=== PATIENT | female | born 1965 | race Caucasian/White ===

== ENCOUNTER 2017-12-23 10:48 | Outpatient (CLI) | payer BC | END 2017-12-23 10:49 | disposition home or self-care (01) | LOC: BICMAMMO 10:48 | PROVIDERS: ATTEND Family Medicine | DX: Z12.31 Encounter for screening mammogram for malignant neoplasm of breast (principal) | CPT/HCPCS: 77063; 77067 ==

== ENCOUNTER 2019-04-25 19:50 | Emergency (ER) | payer BC ==
[2019-04-25] MEDS ORDERED: Metoclopramide HCl 10 MG/2 ML VIAL ONE (20:30)
[2019-04-25] MEDS ORDERED: diphenhydrAMINE 50 MG/ML VIAL ONE (20:30)
--- NOTE | 2019-04-25 20:39 | CT ---
Exam: Head CT without contrast HISTORY: Sudden onset headache. COMPARISON: none FINDINGS: Hemorrhage: No intraparenchymal hemorrhage or extra-axial hematoma. Brain parenchyma: Cortical alberts-white matter differentiation is preserved. No mass effect or midline shift. Basilar cisterns are patent. Ventricular system: Ventricles and sulci are patent and symmetric. Calvarium: Intact. Sinuses and mastoid air cells: Adequate aeration. IMPRESSION: No acute intracranial process.
[2019-04-25] MEDS ORDERED: Lorazepam 2 MG/ML VIAL ONE (21:01)
== END 2019-04-25 22:10 | disposition home or self-care (01) ==
LOC: ERS 19:50
DX: R51 Headache (principal); K21.9 Gastro-esophageal reflux disease without esophagitis; E78.5 Hyperlipidemia, unspecified; J45.909 Unspecified asthma, uncomplicated
CPT/HCPCS: 70450; 96361; 96365; 96375; J1200; J2060; J2765

== ENCOUNTER 2019-05-14 13:01 | Outpatient (CLI) | payer BC ==
--- NOTE | 2019-05-14 14:29 | ULT ---
BILATERAL CAROTID DUPLEX ULTRASOUND: HISTORY: Dizziness with vertigo and headache TECHNIQUE: Grayscale, color-flow and spectral Doppler ultrasound imaging of the extracranial carotid artery syst ems and vertebral arteries was performed bilaterally. FINDINGS: No large amount of echogenic plaque is seen involving the common carotid or internal carotid arteries . The peak systolic velocity in the right ICA measures 107 cm/s. The peak systolic velocity in the rig ht CCA measures 110 cm/s. The peak systolic velocity in the left ICA measures 95 cm/s. The peak systolic velocity in the lef t CCA measures 143 cm/s. The right IC/CC ratio is0.97. The left IC/CC ratio is 0.66. Vertebral flow: antegrade, bilaterally. . IMPRESSION: No hemodynamically significant stenosis of
== END 2019-05-14 13:02 | disposition home or self-care (01) ==
LOC: BICULT 13:01
PROVIDERS: ATTEND Family Medicine
DX: H93.A3 Pulsatile tinnitus, bilateral (principal)
CPT/HCPCS: 93880

== ENCOUNTER 2019-12-07 16:15 | Outpatient (CLI) | payer BC ==
--- NOTE | 2019-12-07 16:44 | RAD ---
Lumbar spine 4 views flexion and extension HISTORY: Back pain. FINDINGS: There are 5 lumbar type vertebrae. Pedicles are intact. Incomplete posterior fusion at the S1 level. Vertebral body heights and alignment are maintained. No abnormal translational motion upon flexion or extension. Moderate osteophytosis throughout the lower facets. Calcification over the arterial structures of the retroperitoneum on the lateral view. IMPRESSION : Mild degenerative changes lower lumbar spine. No acute osseous abnormalities are demonstrated. Atherosclerosis.
--- NOTE | 2019-12-07 18:31 | RAD ---
EXAM: LEFT HIP TWO VIEWS: 12/07/19 HISTORY: Left hip pain. FINDINGS: Mild arthrosis changes of the left hip joint. No fracture, dislocation, or other acute process. IMPRESSION: Mild left hip joint arthrosis without other acute process. POS: RRE
== END 2019-12-07 16:16 | disposition home or self-care (01) ==
LOC: BICRAD 16:15
PROVIDERS: ATTEND Family Medicine
DX: M25.552 Pain in left hip (principal); M54.5 Low back pain; M16.12 Unilateral primary osteoarthritis, left hip; M47.816 Spondylosis without myelopathy or radiculopathy, lumbar region; I70.90 Unspecified atherosclerosis
CPT/HCPCS: 72110

== ENCOUNTER 2020-09-20 16:12 | Outpatient (CLI) | payer BC, OTHER | END 2020-09-20 16:13 | disposition home or self-care (01) | LOC: BICMAMMO 16:12 | PROVIDERS: ATTEND Family Medicine | DX: Z12.31 Encounter for screening mammogram for malignant neoplasm of breast (principal) | CPT/HCPCS: 77063; 77067 ==